=== PATIENT | male | born 1985 | race Caucasian/White ===

== ENCOUNTER 2020-05-07 11:47 | Emergency (ER) | payer BC, SELFPAY ==
--- OUTSIDE RECORDS SUMMARY | 2020-05-07 11:49 | XMS REPORT | Summary of Care ---
:1985 Author Organization [facility] [place] [address] Care Team Providers Name Role Phone Unavailable Primary Care Provider Unavailable Reason for Visit Reason Comments Hypogonadism Consult, Test & Treat (Routine) Status Reason Specialty Diagnoses / Referred By Referred To Procedures Contact Contact Authorization Not Urology Diagnoses Hypogonadism in male [facility] U[facility] [place], Needed Procedures [place] OFFICE OUTPATIENT VISIT 15 MINUTES ESTABLISHED OFFICE VISIT 6624 Anton Hernandez MD [facility] [address] [place], [place] [address] [id number] [place], [place] Phone: [phone] Phone: Encounter Details Date Type Department Care Team Description 02/19/2020 Office Visit [facility] Nathen Jewell I, Hypogonadism Urology 6624 Conrad Nguyen, [facility] [address] [place] [address] [address] [place], [place] [address] [phone] Allergies No Known Allergiesdocumented as of this encounter (statuses as of 02/25/2020) Medications Medication Sig Dispensed Refills Start Date End Date Status trazodone trazodone 100 mg tablet 0 Active (DESYREL) 100 TAKE 1 TABLET BY MOUTH EVERY DAY AT BEDTIME MG tablet clonazepam TK 1 T PO BID 0 06/26/2019 Acti ve (KLONOPIN) 1 MG PRN tablet diazepam diazepam 5 mg tablet 0 Active (VALIUM) 5 MG TAKE 1 TABLET BY MOUTH TWICE DAILY tablet omeprazole TK 1 C PO QAM 3 07/20/2019 Acti ve (PRILOSEC) 20 MG capsule cetirizine,ZYRT TK 1 T PO QD 3 08/16/2019 Active EC, 10 MG tablet Multiple Take 1 Tab by 0 Active Vitamin mouth. (MULTI-VITAMINS ) TABS docusate sodium DOK 100 mg 0 Act maury (DOK) 100 MG capsule capsule tizanidine tizanidine 4 mg tablet 0 Active (ZANAFLEX) 4 MG TAKE 1 TABLET BY MOUTH TWICE DAILY NEEDED tablet ketorolac ketorolac 10 mg tablet 0 Active (TORADOL) 10 MG Take 1 tablet every 6 hours by oral route as needed for 30 days. tablet diclofenac diclofenac 0 Disconti nued (VOLTAREN) 75 sodium 75 mg 0 MG EC tablet tablet,delayed release hydrocodone-bere hydrocodone 5 0 Discontinued taminophen mg-acetaminophen 0 (* Temporary (NORCO) 5-325 325 mg tablet pr escription) mg tablet celecoxib Take 1 Cap by 30 Cap 0 01/26/2020 Disco ntinued (CELEBREX) 200 mouth daily. 0 (* Temporary MG capsule prescript ion) diazepam diazepam 5 mg 0 Discon tinued (VALIUM) 5 MG tablet 0 (*Dupl icate tablet medication ) documented as of this encounter (statuses as of 02/25/2020) Active Problems Problem Noted Date Admission for reversal of vasectomy 08/18/2019 Sleep apnea 04/04/2018 Anxiety 02/06/2018 Chronic back pain 08/08/2017 Gastroesophageal reflux disease 08/08/2017 documented as of this encounter (statuses as of 02/25/2020) Social History Tobacco Use Types Packs/Day Years Used Date Never Smoker Smokeless Tobacco: Never Used Sex Assigned at Date Recorded Not on file Job Start Date Occupation Industry Not on file Not on file Not on file Travel History Travel Start Travel End No recent travel history available. COVID-19 Exposure Response Date Recorded In the last month, have you been in contact with No / Unsure 02/19/2020 2:32 PM CDT someone who was confirmed or suspected to have Coronavirus / COVID-19? documented as of this encounter Last Filed Vital Signs Vital Sign Reading Time Taken Comments Blood Pressure 108/72 02/19/2020 3:20 PM CDT Pulse 77 02/19/2020 3:20 PM CDT Temperature 36.9 C (98.4 F) 02/19/2020 3:20 PM CDT Respiratory Rate - - Oxygen Saturation - - Inhaled Oxygen Concentration - - Weight 97.5 kg (215 lb) 02/19/2020 3:20 PM CDT Height 180.3 cm (5' 11") 02/19/2020 3:20 PM CDT Body Mass Index 29.99 02/19/2020 3:20 PM CDT documented in this encounter Progress Notes Anotn Jewell MD - 02/19/2020 2:30 PM CDT I saw and evaluated the patient and agree with the resident's/fellow's findings as written. 34 y.o. yo male patient returns for follow-up after vasectomy reversal Mr. Hermilo Spann is a 34 yo male who is s/p B-VV, L-TESE on 08/18/2019. He presented for post-op on09/10/2019 and was experiencing moderate edema in the scrotum for which I prescribed celebrex. He reports that is now since resolved, and he reports he is feeling good, no issues with swelling, discomfort only with certain positions and reported as tolerable without pain medication. Partner, , is 29 yo, they report they have been actively trying since cleared at post- Component Latest Ref Rng & Units 11/19/2019 01/08/2020 VOLUME ml 2 1.50 DENSITY 60 - 120 M/ml 21.20 (A) 23.20 (A) MOTILITY 60 - 80 % 8 (A) 5 (A) FORWARD PROGRESSION 2.5 - 3.5 2 (A) 1.5 (A) TOTAL COUNT 90 - 600 M 42.40 (A) 34.80 (A) TOTAL MOTILE 54 - 480 M 3.39 (A) 1.74 (A) CLUMPING None - 1+ 1 0 SA TD: 1.5 ml / 5.2 million / 4% / 1.5 Component Latest Ref Rng & Units 08/18/2019 WEIGHT mg 190.0 COUNT/HPF:(AVG OF 10 BERRY) 7.00 MOTILITY % 1 FORWARD PROGRESSION 0-4 0.0 COMMENT Freeze: LEFT TESE: 2 vials x 0.[address] Nurys PATTON Celebrex RT 11/18 Discussed IVF Niko Richardson MD - 02/19/2020 2:30 PM CDT Last seen 11/2019 Follow up Patient No chief complaint on file. HPI: 34 y.o. yo male patient returns for follow-up after vasectomy reversal Mr. Hermilo Spann is a 34 yo male who is s/p B-VV, L-TESE on 08/18/2019. He presented for post-op on09/10/2019 and was experiencing moderate edema in the scrotum for which I prescribed celebrex. He reports that is now since resolved, and he reports he is feeling good, no issues with swelling, discomfort only with certain positions and reported as tolerable without pain medication. Partner, , is 29 yo, they report they have been actively trying since cleared at post-operative visit. He presents today to review semen analysis results from January and this month He has been doing celebrex for 6 months. SA 02/19/20: 1.5 cc/ 5.2 M/mL/4%/7.8 M TC/ TMC 0.31 M/FP 1.5 Component Latest Ref Rng & Units 01/08/2020 VOLUME ml 1.50 DENSITY 60 - 120 M/ml 23.20 (A) MOTILITY 60 - 80 % 5 (A) FORWARD PROGRESSION 2.5 - 3.5 1.5 (A) TOTAL COUNT 90 - 600 M 34.80 (A) TOTAL MOTILE 54 - 480 M 1.74 (A) CLUMPING None - 1+ 0 ROUNDCELLS <7 /hpf 1-2 VISCOSITY EXT None 0-4+ 0 DAYS OF ABST B/F TO SEMN ANALYSIS 2 COLLECTION TIME 09:00am TIME IN LAB 09:13am TIME EXAMINED 09:45am Review of Systems Constitutional: Negative. HENT: Negative. Eyes: Negative. Respiratory: Negative. Cardiovascular: Negative. Gastrointestinal: Negative. Genitourinary: As per HPI Musculoskeletal: Negative. Skin: Negative. Neurological: Negative. Negative for dizziness. Endo/Heme/Allergies: Negative. Psychiatric/Behavioral: Negative. Major illness, prior hospitalizations, surgical procedures and current medications were validated and updated appropriately. BP 108/72 (BP Location: left arm, Patient Position: Sitting, Cuff Size: large) | Pulse 77 | Temp 98.4 F (36.9 C) | Ht 5' 11" (1.803 m) | Wt 215 lb (97.5 kg) | BMI 29.99 kg/m Physical Exam Constitutional: He is oriented to person, place, and time. He appears well- developed and well-nourished. He is cooperative. No distress. HENT: Head: Normocephalic and atraumatic. Hair is normal. Right Ear: Hearing and external ear normal. Left Ear: Hearing and external ear normal. Nose: Nose normal. Eyes: Conjunctivae, EOM and lids are normal. Right eye exhibits no discharge. Left eye exhibits no discharge. No scleral icterus. Neck: Normal range of motion. Neck supple. No neck rigidity. No edema and no erythema present. Pulmonary/Chest: Effort normal. No apnea, no tachypnea and no bradypnea. No respiratory distress. Musculoskeletal: Normal range of motion. He exhibits no edema or deformity. Neurological: He is alert and oriented to person, place, and time. Coordination and gait normal. Skin: Skin is warm, dry and intact. No rash noted. He is not diaphoretic. No erythema. No pallor. Psychiatric: He has a normal mood and affect. His behavior is normal. Judgment and thought content normal. Assessment and Plan Diagnoses and all orders for this visit: Infertility, male, post-vasectomy reversal Plan - Stop celebrex - Consider trial of Xseed - follow-up with Dr. Jewell in 3 months Niko Richardson MD Urology PGY2 documented in this encounter Plan of Treatment Date Type Specialty Care Team Description 05/13/2020 Office Visit Urology Anton Jewell MD [address] [place], [place] [address] [phone] Health Maintenance Due Date Last Done Comments TETANUS SHOT (ADULT) 11/10/2002 BMI FOLLOW UP PLAN 11/10/2005 HIV SCREENING 11/10/2005 FLU VACCINE > 6 MONTHS 04/09/2020 documented as of this encounter Procedures Procedure Name Priority Date/Time Associated Diagnosis Comme nts FSH + LH PROFILE Routine 02/19/2020 4:26 PM Testicular failur e Results for this CDT procedure are i n the results section. documented in this encounter Results FSH + LH PROFILE (02/19/2020 4:26 PM CDT) FOLLICLE 5.3 1.5 - 12.4 CPL STIMULATING HORMONE IU/L LUTEINIZING HORMONE 7.4 1.2 - 8.6 CPL Comment: IU/L Unless Otherwise Indicated, All Testing Pe rformed At: [facility], [address] [place] [address] Home Care Rn: Madison Doty CLIA Number [id number] [facility] [place] [id number] Specimen Performing Organization Address [facility] Phone Number [address] [address] TESTOSTERONE-TOTAL(URO DEPT) (02/19/2020) Pathologist Sig nature TESTOSTERONE LEVEL 322 300 - 1,000 ng/dl [facility] REPRODUCTIVE RESEARCH & TESTING CLIA# [id number] [facility] DIRECTOR:EVAN SORENSON,PH.D.,HCLD Specimen Serum Performing Organization Address [facility] Phone Number [address] [id number] documented in this encounter Visit Diagnoses Diagnosis Testicular failure - Primary Other testicular hypofunction documented in this encounter Insurance Payer Benefit Plan Subscriber ID Effective Phone Address Typ e / Group Dates [employer]UE [employer] BLUE OUT OF STATE xxxxxxxxxxxx 2019-Prese [address] PPO SHIELD BCBS - PPO - [id number] [place] [address] [employer] xxxxxxxxx Effective for [id number] [address] 6 Other HEALTHCARE all dates [address] [facility] [id number] documented as of this encounter
--- OUTSIDE RECORDS SUMMARY | 2020-05-07 11:49 | XMS REPORT | Clinical Summary ---
:1985 Author Organization [facility] Address [address] [place] [address] Care Team Providers Name Role Phone Unavailable Primary Care Provider Unavailable Allergies No Known Allergies Medications Medication Sig Dispensed Refills Start Date End Date Status traZODone (DESYREL) Take 100 mg 0 Active 100 MG tablet by mouth nightly. cetirizine (ZYRTEC) Take 10 mg by 0 Active 10 MG tablet mouth daily. omeprazole Take 20 mg by 0 Activ e (PRILOSEC) 20 MG mouth daily. capsule clonazePAM Take 1 mg by 0 Active (KLONOPIN) 1 MG mouth 2 (two) tablet times daily as needed for Anxiety. tiZANidine Take 4 mg by 0 Active (ZANAFLEX) 4 MG mouth every 6 tablet (six) hours as needed. multivitamin per Take 1 tablet 0 Active tablet by mouth daily. cefadroxil Take 1 tablet 6 tablet 0 08/18/2019 08/21/2019 Exp ired (DURICEF) 1 gram (1 g total) tablet by mouth 2 (two) times daily for 3 days. docusate sodium Take 1 10 capsule 0 08/18/2019 08/18/2019 D iscontinued (COLACE) 100 MG capsule (100 capsule mg total) by mouth 2 (two) times daily for 10 days. docusate sodium Take 1 10 capsule 0 08/18/2019 08/28/2019 E xpired (COLACE) 100 MG capsule (100 capsule mg total) by mouth 2 (two) times daily for 10 days. Active Problems Problem Noted Date Admission for reversal of vasectomy 08/18/2019 Encounters Date Type Specialty Care Team Description 08/18/2019 Anesthesia Event Kerry Weaver MD 08/18/2019 Surgery Anton JewellMY I., MD 08/18/2019 Hospital Encounter Anton Jewell MD 08/14/2019 Hospital Encounter Pre-Admission Testing after 05/07/2019 Social History Tobacco Use Types Packs/Day Years Used Date Former Smoker 0.5 12 Quit: 2015 Smokeless Tobacco: Never Used Alcohol Use Drinks/Week oz/Week Comments Yes Occasionally Sex Assigned at Date Recorded Not on file Job Start Date Occupation Industry Not on file Not on file Not on file Travel History Travel Start Travel End No recent travel history available. Last Filed Vital Signs Vital Sign Reading Time Taken Blood Pressure 144/86 08/18/2019 3:25 PM SOFTWARE ENGINEERING MANAGER Pulse 87 08/18/2019 3:25 PM SOFTWARE ENGINEERING MANAGER Temperature 36.9 C (98.4 F) 08/18/2019 3:25 PM SOFTWARE ENGINEERING MANAGER Respiratory Rate 20 08/18/2019 3:25 PM SOFTWARE ENGINEERING MANAGER Oxygen Saturation 97% 08/18/2019 3:25 PM SOFTWARE ENGINEERING MANAGER Inhaled Oxygen Concentration - - Weight 97.3 kg (214 lb 9.6 oz) 08/18/2019 7:15 AM SOFTWARE ENGINEERING MANAGER Height 181.6 cm (5' 11.5") 08/18/2019 7:15 AM SOFTWARE ENGINEERING MANAGER Body Mass Index 29.51 08/18/2019 7:15 AM SOFTWARE ENGINEERING MANAGER Plan of Treatment Not on file Procedures Procedure Name Priority Date/Time Associated Diagnosis Comme nts EPIDIDYMOVASOSTOMY 08/18/2019 9:30 AM SOFTWARE ENGINEERING MANAGER Disorder of male genital organs, unspecified after 05/07/2019 Results Not on fileafter 05/07/2019 Insurance Payer Benefit Plan / Group Subscriber ID Type Phone A ddress [facility] AND PC3 xxxxxxxxx
--- NOTE | 2020-05-07 12:41 | ER ---
Nurse's Notes [facility] Name: Hermilo Spann Age: 34 yrs Sex: Male : 1985 Arrival Date: 05/07/2020 Time: 11:55 Bed 7 Private MD: Diagnosis: Low back pain Presentation: 05/07 12:02 Chief complaint: Patient states: hx of herniated disc, injured it on while iw mowing and fixing a sprinkler, now has low back pain L5 area, feels like pinched nerve , takes ketorolac for pain, not helping. Coronavirus screen: At this time, the client does not indicate any symptoms associated with coronavirus-19. Ebola Screen: Patient negative for fever greater than or equal to 101.5 degrees Fahrenheit, and additional compatible Ebola Virus Disease symptoms Patient denies exposure to infectious person. Patient denies travel to an Ebola-affected area in the 21 days before illness onset. No symptoms or risks identified at this time. Initial Sepsis Screen: Does the patient meet any 2 criteria? No. Patient's initial sepsis screen is negative. Does the patient have a suspected source of infection? No. Patient's initial sepsis screen is negative. Risk Assessment: Do you want to hurt yourself or someone else? Patient reports no desire to harm self or others. Onset of symptoms was May 05, 2020. 12:02 Method Of Arrival: Ambulatory iw 12:02 Acuity: DHRUV 3 iw Historical: - Allergies: 12:04 No Known Allergies; iw - PMHx: 12:04 Back pain; iw - PSHx: 12:04 Knee surgery; iw - Immunization history:: Adult Immunizations not up to date. - Social history:: Smoking status: Patient denies any tobacco usage or history of. - Family history:: not pertinent. Screenin:10 Abuse screen: Denies threats or abuse. Denies injuries from another. Nutritional sv screening: No deficits noted. Tuberculosis screening: No symptoms or risk factors identified. Fall Risk None identified. Assessment: 12:20 General: Appears in no apparent distress. uncomfortable, Behavior is calm, cooperative. hb Pain: Pain currently is 6 out of 10 on a pain scale. Neuro: Level of Consciousness is awake, alert, obeys commands, Oriented to person, place, time, situation. Cardiovascular: Capillary refill < 3 seconds Patient's skin is warm and dry. Respiratory: Respiratory effort is even, unlabored, Respiratory pattern is regular, symmetrical. GI: No signs and/or symptoms were reported involving the gastrointestinal system. : No signs and/or symptoms were reported regarding the genitourinary system. EENT: No signs and/or symptoms were reported regarding the EENT system. Derm: Skin is pink, warm \T\ dry. Derm: Reports low back pain. 12:47 Reassessment: Pt waiting IM shot time before discharge. sv 13:05 Reassessment: Patient appears in no apparent distress at this time. No changes from sv previously documented assessment. Patient and/or family updated on plan of care and expected duration. Pain level reassessed. Patient is alert, oriented x 3, equal unlabored respirations, skin warm/dry/pink. Vital Signs: 12:02 BP 132 / 90; Pulse 64; Resp 16; Temp 98.7; Pulse Ox 99% on R/A; Weight 99.79 kg; Height iw 5 ft. 11 in. (180.34 cm); Pain 6/10; 12:02 Body Mass Index 30.68 (99.79 kg, 180.34 cm) iw ED Course: 11:55 Patient arrived in ED. ds1 12:04 Triage completed. iw 12:10 Georgette Griffiths, KIYA is Primary Nurse. sv 12:10 Na Rosen MD is Attending Physician. ma2 12:10 Arm band placed on. sv 12:10 Patient has correct armband on for positive identification. Bed in low position. Call sv light in reach. Door closed. Head of bed elevated. 12:29 ED physician to see patient. sv 13:05 No provider procedures requiring assistance completed. Patient did not have IV access sv during this emergency room visit. Administered Medications: 12:44 Drug: MethylPREDNISolone Sodium Succinate 125 mg Route: IM; Site: left gluteus; sv 13:04 Follow up: Response: No adverse reaction sv 12:44 Drug: TORadol 60 mg Route: IM; Site: left gluteus; sv 13:04 Follow up: Response: No adverse reaction sv Outcome: 12:41 Discharge ordered by . ma2 13:05 Discharged to home ambulatory. sv 13:05 Condition: stable 13:05 Discharge instructions given to patient, Instructed on discharge instructions, follow up and referral plans. medication usage, Demonstrated understanding of instructions, follow-up care, medications, Prescriptions given X 2. 13:06 Patient left the ED. sv Signatures: Georgette Griffiths RN RN sv Sanford, Demi ds1 Carolyn Keene RN RN Amber Jorge RN RN hb Alzahri, Mohammad, MD MD ma2
--- NOTE | 2020-05-07 12:41 | EDPHYS ---
Physician Documentation [facility] Name: Hermilo Spann Age: 34 yrs Sex: Male : 1985 Arrival Date: 05/07/2020 Time: 11:55 Bed 7 Private MD: ED Physician Na Rosen HPI: 05/07 12:38 This 34 yrs old Male presents to ER via Ambulatory with complaints of Back ma2 Pain. 12:38 The patient presents with pain that is chronic. Onset: The symptoms/episode ma2 began/occurred gradually, 3 year(s) ago. Associated signs and symptoms: Pertinent negatives: chest pain, fever, hematuria, nausea. The problem was sustained when lifting from twisting. Severity of symptoms: At their worst the symptoms were moderate, in the emergency department the symptoms are unchanged. The patient has experienced similar episodes in the past. has chronic back pain was working in his yard last week and lifting heavy objects and back pain got worse, no trauma, no fever, weakness or problem with urination. Historical: - Allergies: 12:04 No Known Allergies; iw - PMHx: 12:04 Back pain; iw - PSHx: 12:04 Knee surgery; iw - Immunization history:: Adult Immunizations not up to date. - Social history:: Smoking status: Patient denies any tobacco usage or history of. - Family history:: not pertinent. ROS: 12:38 Constitutional: Negative for fever, chills, and weight loss. ma2 12:38 All other systems are negative. Exam: 12:38 Constitutional: This is a well developed, well nourished patient who is awake, alert, ma2 and in no acute distress. ENT: Nares patent. No nasal discharge, no septal abnormalities noted. Tympanic membranes are normal and external auditory canals are clear. Oropharynx with no redness, swelling, or masses, exudates, or evidence of obstruction, uvula midline. Mucous membranes moist. Neck: Trachea midline, no thyromegaly or masses palpated, and no cervical lymphadenopathy. Supple, full range of motion without nuchal rigidity, or vertebral point tenderness. No Meningismus. Chest/axilla: Normal chest wall appearance and motion. Nontender with no deformity. No lesions are appreciated. Cardiovascular: Regular rate and rhythm with a normal S1 and S2. No gallops, murmurs, or rubs. Normal PMI, no JVD. No pulse deficits. Respiratory: Lungs have equal breath sounds bilaterally, clear to auscultation and percussion. No rales, rhonchi or wheezes noted. No increased work of breathing, no retractions or nasal flaring. Abdomen/GI: Soft, non-tender, with normal bowel sounds. No distension or tympany. No guarding or rebound. No evidence of tenderness throughout. Back: No spinal tenderness. No costovertebral tenderness. Full range of motion. Skin: Warm, dry with normal turgor. Normal color with no rashes, no lesions, and no evidence of cellulitis. MS/ Extremity: Pulses equal, no cyanosis. Neurovascular intact. Full, normal range of motion. Neuro: Awake and alert, GCS 15, oriented to person, place, time, and situation. Cranial nerves II-XII grossly intact. Motor strength 5/5 in all extremities. Sensory grossly intact. Cerebellar exam normal. Normal gait. Vital Signs: 12:02 BP 132 / 90; Pulse 64; Resp 16; Temp 98.7; Pulse Ox 99% on R/A; Weight 99.79 kg; Height iw 5 ft. 11 in. (180.34 cm); Pain 6/10; 12:02 Body Mass Index 30.68 (99.79 kg, 180.34 cm) iw MDM: 12:10 Patient medically screened. ma2 12:38 Differential diagnosis: arthritis, chronic back pain, Fatigue sprain. Data reviewed: [facility] vital signs, nurses notes. Counseling: I had a detailed discussion with the patient and/or guardian regarding: the historical points, exam findings, and any diagnostic results supporting the discharge/admit diagnosis, the presence of at least one elevated blood pressure reading (>120/80) during this emergency department visit, the need for outpatient follow up. Response to treatment: There is no appreciated change of the patient's symptoms at this time. Response to treatment: the patient's symptoms have markedly improved after treatment. ED course: no red flags for cauda equina or disc compressoini . Administered Medications: 12:44 Drug: MethylPREDNISolone Sodium Succinate 125 mg Route: IM; Site: left gluteus; sv 13:04 Follow up: Response: No adverse reaction sv 12:44 Drug: TORadol 60 mg Route: IM; Site: left gluteus; sv 13:04 Follow up: Response: No adverse reaction sv Disposition: 05/07/20 12:41 Discharged to Home. Impression: Low back pain. - Condition is Stable. - Discharge Instructions: Back Pain, Adult, Back Pain, Adult, [id number]. - Prescriptions for Diclofenac Sodium 75 mg Oral Tablet Sustained Release - take 1 tablet by ORAL route 2 times per day; 30 tablet. Medrol (Brennan) 4 mg Oral Tablets, Dose Pack - take 1 tablet by ORAL route as directed - follow package instructions; 1 packet. - Work release form, Medication Reconciliation Form, Thank You Letter, Antibiotic Education, Prescription Opioid Use form. - Follow up: Private Physician; When: Tomorrow; Reason: Continuance of care. Signatures: Georgette Griffiths RN RN sv Williams, Irene, RN RN iw Alzahri, Mohammad, MD MD ma2 Corrections: (The following items were deleted from the chart) 13:06 12:41 05/07/2020 12:41 Discharged to Home. Impression: Low back pain. Condition is sv Stable. Discharge Instructions: Back Pain, Adult, [id number]. Prescriptions for Diclofenac Sodium 75 mg Oral Tablet Sustained Release - take 1 tablet by ORAL route 2 times per day; 30 tablet, Medrol (Brennan) 4 mg Oral Tablets, Dose Pack - take 1 tablet by ORAL route as directed - follow package instructions; 1 packet. and Forms are Medication Reconciliation Form, Thank You Letter, Antibiotic Education, Prescription Opioid Use. Follow up: Private Physician; When: Tomorrow; Reason: Continuance of care. ma2
[2020-05-07] MEDS ORDERED: METHYLPREDNISOLONE 125 MG INJ ONE (12:50)
[2020-05-07] MEDS ORDERED: KETOROLAC 30 MG/ML INJ ONE (12:50)
== END 2020-05-07 13:06 | disposition home or self-care (01) ==
LOC: ER 11:47
DX: M54.5 Low back pain (principal)
CPT/HCPCS: 96372; 99283; J2930